=== PATIENT | female | born 1995 | race Caucasian/White ===

== ENCOUNTER 2017-11-28 15:22 | Emergency (ER) | payer BC ==
[~2017-11-28] VITALS: Ht 170.2 cm; Wt 56.7 kg
[2017-11-28] MEDS ORDERED: CIPRO500 MG PO (18:27)
[2017-11-28] MEDS ORDERED: NORCO 5-325 TA1 EACH PO (18:27)
== END 2017-11-28 18:41 | disposition home or self-care (01) ==
LOC: ED 15:22
DX: N12 Tubulo-interstitial nephritis, not specified as acute or chronic (principal)
CPT/HCPCS: 74177; 80053; 81001; 84703; 85025; 96361; 96374; 96375; 99284; J0696; J1885; J2405; J7030; Q9967

== ENCOUNTER 2021-06-26 22:50 | Emergency (ER) | payer BC, OTHER ==
[~2021-06-26] VITALS: Ht 170.2 cm; Wt 63.5 kg
[~2021-06-26 22:50] MED LIST: CIPRO500 MG PO; MONO-LINYAH1 EACH PO; NORCO 5-325 TA1 EACH PO; RIZATRIPTAN10 M1 PO
--- OUTSIDE RECORDS SUMMARY | 2021-06-26 22:54 | XMS ---
PreManage Notification: YOMI LADD Security Practice Director Events No recent Security Events currently on file CRITERIA MET - Group Notification CARE PROVIDERS NAIMA ELLIOTT Obstetrics \T\ Gynecology 04/11/2018-Current PHONE: Unknown Chad has no Care Guidelines for this patient. EAb VISIT COUNT (12 MO.) 1 BETTY Acosta TOTAL 1 NOTE: Visits indicate total known visits. ED/UCC VISIT TRACKING (12 MO.) 06/26/2021 22:51 BETTY Fong OR TYPE: Emergency COMPLAINT: - HEADACHE INPATIENT VISIT TRACKING (12 MO.) No inpatient visits to display in this time frame [email or web address]
[2021-06-26] MEDS ORDERED: CELEXA10 MG PO (23:06)
[2021-06-26] MEDS ORDERED: TOPAMAX50 MG PO (23:58)
== END 2021-06-27 00:10 | disposition home or self-care (01) ==
LOC: ED 22:50
DX: G43.909 Migraine, unspecified, not intractable, without status migrainosus (principal); Z79.899 Other long term (current) drug therapy
CPT/HCPCS: 96374; 96375; 99283-25; J1200; J1885; J2765; J7030